=== PATIENT | male | born 1985 | race Two or more races ===

== ENCOUNTER 2023-09-27 15:30 | Inpatient (IN) | payer OTHER ==
[2023-09-27 15:54] VITALS: BMI 33.5
[2023-09-27] MEDS ORDERED: MAGNESIUM HYDROX 2400MG/30ML ORAL SUSPENSION 30 ML CUP PO PRN (16:16)
[2023-09-27] MEDS ORDERED: P-EPHED 60MG/TRIPROLIDI 2.5MG TABLET PO PRN (16:16)
[2023-09-27] MEDS ORDERED: DICYCLOMINE HCL 10 MG CAPSULE PO PRN (16:16)
[2023-09-27] MEDS ORDERED: NALOXONE (NARCAN) HCL 4 MG/0.1 ML SPRAY NS PRN (16:16)
[2023-09-27] MEDS ORDERED: NICOTINE POLACRILEX 2 MG LOZENGE BC PRN (16:16)
[2023-09-27] MEDS ORDERED: NALOXONE HCL 0.4 MG/ML VIAL IM PRN (16:16)
[2023-09-27] MEDS ORDERED: BISMUTH SUBSALICYLATE 524 MG/30 ML PO PRN (16:16)
[2023-09-27] MEDS ORDERED: LOPERAMIDE HCL 2 MG CAPSULE PO PRN (16:16)
[2023-09-27] MEDS ORDERED: POLYETHYLENE GLYCOL (HEALTHYLAX) 3350 17 GM PACKET PO PRN (16:16)
[2023-09-27] MEDS ORDERED: BENZOCAINE/MENTHOL (CHLORASEPTIC ) LOZENGE MM PRN (16:16)
[2023-09-27] MEDS ORDERED: IBUPROFEN 600 MG TABLET (FP) PO PRN (16:16)
[2023-09-27] MEDS ORDERED: guaiFENesin 600 MG TABLET.ER (FP) PO PRN (16:16)
[2023-09-27] MEDS ORDERED: BENZONATATE 200 MG CAPSULE PO PRN (16:16)
[2023-09-27] MEDS: methaDONE HCL 10 MG TABLET (FOR DETOX USE ONLY) PO ONE (17:40)
[2023-09-27] MEDS: diazePAM 5 MG TABLET PO SCH (17:41)
[2023-09-27] MEDS: NICOTINE POLACRILEX 2 MG GUM BUC PRN (19:55)
[2023-09-27] MEDS: ACETAMINOPHEN 325 MG TABLET (FP) PO PRN (21:35)
[2023-09-27] MEDS: MELATONIN 5 MG TABLETS PO SCH (22:26)
[2023-09-27] MEDS: THIAMINE 100 MG TABLET PO SCH (22:27)
[2023-09-27] MEDS: hydrOXYzine PAMOATE 25 MG CAPSULE (FP) PO PRN (22:27)
[2023-09-28] MEDS: diazePAM 5 MG TABLET PO ONE (06:09)
[2023-09-28] MEDS ORDERED: ALBUTEROL SO4 HFA INHALER IH PRN (08:35)
[2023-09-28] MEDS: BICTEGRAV/EMTRICIT/TENOFOV (BIKTARVY) 50-200-25 MG TABLET PO SCH (10:43)
[2023-09-28] MEDS: PRENATAL VITAMINS W/ FOLIC ACID TABLET (FP) PO SCH (10:43)
[2023-09-28] MEDS: methaDONE HCL 10 MG TABLET PO ONE (10:44)
[2023-09-28] MEDS: diazePAM 5 MG TABLET PO PRN ×2 (10:44→16:58)
[2023-09-28 11:59] LABS: HEMOGLOBIN 13.6 GM/dL (11.7-16.9); MCH 26.7 pg (25.7-33.7); MCHC 31.7 g/dl (32.0-35.9); MEAN CELL VOLUME 84.3 fl (80-96); MEAN PLT VOLUME 8.7 fl (7.5-11.1); PLATELET COUNT 263 10^3/uL (134-434); RDW 14.6 % (11.9-15.9); WHITE BLOOD COUNT 3.9 K/mm3 (4.0-10.0)
[2023-09-28 12:11] LABS: POTASSIUM 3.9 mmol/L (3.5-5.1)
[2023-09-28 12:15] LABS: BLOOD UREA NITROGEN 22.9 mg/dL (7-18)
[2023-09-28 12:17] LABS: CREATININE 1.2 mg/dL (0.55-1.3)
[2023-09-28 12:19] LABS: BILIRUBIN,TOTAL 0.3 mg/dL (0.2-1)
[2023-09-28] MEDS: NICOTINE 14 MG/24 HOURS TOPICAL PATCH TD PRN (13:29)
[2023-09-28] MEDS: MAG HYDROX/AL HYDROX/SIMETH 30 ML UNIT-DOSE CUP PO PRN (13:36)
[2023-09-28] MEDS: cloNIDine HCL 0.1 MG TABLET PO PRN (22:41)
[2023-09-28] MEDS: ATORVASTATIN CA 10 MG TABLET (FP) PO SCH (22:42)
[2023-09-28] MEDS: SUVOREXANT 10 MG TABLET PO PRN (22:42)
[2023-09-28] MEDS: METHOCARBAMOL 500 MG TABLET PO PRN (22:43)
[2023-09-29] MEDS: IBUPROFEN 400 MG TABLET (FP) PO PRN (03:50)
[2023-09-29] MEDS: metFORMIN HCL 500 MG TABLET (FP) PO SCH (06:34)
[2023-09-29] MEDS: methaDONE HCL 10 MG TABLET PO ONE (10:07)
[2023-09-29] MEDS: ONDANSETRON *ODT* 4 MG TABLET SL PRN (17:36)
[2023-09-30] MEDS ORDERED: methaDONE HCL 10 MG TABLET PO ONE (10:00)
[2023-10-01] MEDS: methaDONE HCL 10 MG TABLET PO ONE (10:09)
[2023-10-01 13:10] VITALS: BP 147/95; PULSE 61; RESP 18; TEMP 98.6
== END 2023-10-01 12:15 | disposition other institution (70) | DRG 773 ==
LOC: YASAS 15:30 → Y6N 17:02
PROVIDERS: ADMIT Allergy & Immunology; ATTEND Surgery
PROC: HZ2ZZZZ Detoxification Services for Substance Abuse Treatment (ICD-10-PCS; principal; 2023-09-27)
DX: F11.23 Opioid dependence with withdrawal (principal); F14.20 Cocaine dependence, uncomplicated; F15.20 Other stimulant dependence, uncomplicated; F17.210 Nicotine dependence, cigarettes, uncomplicated; F33.1 Major depressive disorder, recurrent, moderate; F19.282 Other psychoactive substance dependence with psychoactive substance-induced sleep disorder; Z21 Asymptomatic human immunodeficiency virus [HIV] infection status; E78.5 Hyperlipidemia, unspecified; E11.9 Type 2 diabetes mellitus without complications; Z79.84 Long term (current) use of oral hypoglycemic drugs; J45.20 Mild intermittent asthma, uncomplicated; Z79.899 Other long term (current) drug therapy; Z86.19 Personal history of other infectious and parasitic diseases
CPT/HCPCS: 36415; 80053; 80305; 80307; 82962; 85027; 86593; 86780; 87811; 93005; 93010; Q0162

== ENCOUNTER 2023-10-01 13:09 | Inpatient (IN) | payer OTHER ==
[2023-10-01] MEDS ORDERED: BENZONATATE 200 MG CAPSULE PO PRN (14:34)
[2023-10-01] MEDS ORDERED: LOPERAMIDE HCL 2 MG CAPSULE PO PRN (14:34)
[2023-10-01] MEDS ORDERED: NALOXONE (NARCAN) HCL 4 MG/0.1 ML SPRAY NS PRN (14:34)
[2023-10-01] MEDS ORDERED: BENZOCAINE/MENTHOL (CHLORASEPTIC ) LOZENGE MM PRN (14:34)
[2023-10-01] MEDS ORDERED: IBUPROFEN 400 MG TABLET (FP) PO PRN (14:34)
[2023-10-01] MEDS ORDERED: NALOXONE HCL 0.4 MG/ML VIAL IVPUSH PRN (14:34)
[2023-10-01] MEDS ORDERED: guaiFENesin 600 MG TABLET.ER (FP) PO PRN (14:34)
[2023-10-01] MEDS: hydrOXYzine PAMOATE 25 MG CAPSULE (FP) PO PRN (16:50)
[2023-10-01] MEDS: MAG HYDROX/AL HYDROX/SIMETH 30 ML UNIT-DOSE CUP PO PRN (17:54)
[2023-10-01] MEDS: ATORVASTATIN CA 10 MG TABLET (FP) PO SCH (21:18)
[2023-10-01] MEDS: THIAMINE 100 MG TABLET PO SCH (21:18)
[2023-10-01] MEDS: MELATONIN 5 MG TABLETS PO SCH (21:18)
[2023-10-01] MEDS: METHOCARBAMOL 500 MG TABLET PO PRN (21:19)
[2023-10-01] MEDS: IBUPROFEN 600 MG TABLET (FP) PO PRN (23:05)
[2023-10-02] MEDS: BICTEGRAV/EMTRICIT/TENOFOV (BIKTARVY) 50-200-25 MG TABLET PO SCH ×2 (05:26→17:28)
[2023-10-02] MEDS: NICOTINE 14 MG/24 HOURS TOPICAL PATCH TD SCH (05:27)
[2023-10-02] MEDS: metFORMIN HCL 500 MG TABLET (FP) PO SCH (06:04)
[2023-10-02] MEDS ORDERED: INSULIN ASPART SLIDING SCALE (NOVOLOG) 1 VIAL SQ ONE (06:31)
[2023-10-02] MEDS: methaDONE HCL 10 MG TABLET PO SCH (06:49)
[2023-10-02] MEDS ORDERED: NICOTINE 14 MG/24 HOURS TOPICAL PATCH TD SCH (10:00)
[2023-10-02] MEDS: PRENATAL VITAMINS W/ FOLIC ACID TABLET (FP) PO SCH (10:39)
[2023-10-02] MEDS: LISINOPRIL 10 MG TABLET PO SCH (14:02)
[2023-10-02] MEDS: ATORVASTATIN CA 10 MG TABLET (FP) PO SCH (21:16)
[2023-10-03] MEDS: BICTEGRAV/EMTRICIT/TENOFOV (BIKTARVY) 50-200-25 MG TABLET PO SCH (07:08)
[2023-10-03] MEDS: POLYETHYLENE GLYCOL (HEALTHYLAX) 3350 17 GM PACKET PO PRN (11:55)
[2023-10-03 12:03] LABS: POTASSIUM 4.7 mmol/L (3.5-5.1)
[2023-10-03 12:11] LABS: CALCIUM 9.5 mg/dL (8.5-10.1)
[2023-10-03 12:12] LABS: BLOOD UREA NITROGEN 18.3 mg/dL (7-18)
[2023-10-03 12:15] LABS: CREATININE 1.1 mg/dL (0.55-1.3)
[2023-10-03 12:28] LABS: BASO % 0.3 % (0-2.0); EOS % 1.5 % (0-4.5); HEMATOCRIT 42.3 % (35.4-49); HEMOGLOBIN 13.6 GM/dL (11.7-16.9); MCH 27.1 pg (25.7-33.7); MCHC 32.1 g/dl (32.0-35.9); MEAN CELL VOLUME 84.5 fl (80-96); MEAN PLT VOLUME 9.2 fl (7.5-11.1); MONO % 14.2 % (3.8-10.2); PLATELET COUNT 257 10^3/uL (134-434); RDW 14.5 % (11.9-15.9); WHITE BLOOD COUNT 6.1 K/mm3 (4.0-10.0)
[2023-10-03] MEDS: SUVOREXANT 10 MG TABLET PO PRN (21:09)
[2023-10-04] MEDS: ALBUTEROL SO4 HFA INHALER IH PRN (00:34)
[2023-10-04] MEDS ORDERED: BISMUTH SUBSALICYLATE 262 MG/15 ML BTL PO PRN (14:20)
[2023-10-04] MEDS: GABAPENTIN 100 MG CAPSULE PO SCH (14:39)
[2023-10-04] MEDS: amLODIPine BESYLATE 2.5 MG TABLET (FP) PO SCH (14:50)
[2023-10-04] MEDS: ONDANSETRON *ODT* 4 MG TABLET SL PRN (14:51)
[2023-10-04] MEDS: CLOTRIMAZOLE 10 MG TROCHE PO SCH (18:47)
[2023-10-04] MEDS: BACLOFEN 10 MG TABLET (FP) PO SCH (21:06)
[2023-10-05] MEDS: BICTEGRAV/EMTRICIT/TENOFOV (BIKTARVY) 50-200-25 MG TABLET PO SCH (06:10)
[2023-10-05] MEDS: methaDONE HCL 40 MG DISPERSABLE TABLET PO SCH (06:11)
[2023-10-05] MEDS: DICYCLOMINE HCL 10 MG CAPSULE PO PRN (06:40)
[2023-10-05] MEDS ORDERED: methaDONE HCL 10 MG TABLET PO SCH (10:00)
[2023-10-05] MEDS: MAGNESIUM HYDROX 2400MG/30ML ORAL SUSPENSION 30 ML CUP PO PRN (17:46)
[2023-10-06] MEDS: methaDONE HCL 10 MG TABLET PO SCH (06:06)
[2023-10-06] MEDS: SUVOREXANT 10 MG TABLET PO PRN (21:16)
[2023-10-07] MEDS: ARIPiprazole 5 MG TABLET PO SCH (16:20)
[2023-10-07] MEDS: SUVOREXANT 15 MG TABLET PO PRN (21:05)
[2023-10-09] MEDS: BISACODYL 5 MG TABLET.DR (FP) PO PRN (14:02)
[2023-10-09] MEDS: DOCUSATE SODIUM 100 MG CAPSULE (FP) PO PRN (21:08)
[2023-10-10] MEDS ORDERED: methaDONE HCL 10 MG TABLET PO SCH (06:00)
[2023-10-10] MEDS: ACETAMINOPHEN 325 MG TABLET (FP) PO PRN (23:11)
[2023-10-12] MEDS: SODIUM PHOSPHATE/NA BIPHOS 133 ML ENEMA RC ONE (14:12)
[2023-10-12] MEDS ORDERED: SODIUM PHOSPHATE/NA BIPHOS 133 ML ENEMA RC PRN (15:21)
[2023-10-15] MEDS: SUVOREXANT 5 MG TABLET PO PRN (21:10)
[2023-10-16 06:47] VITALS: RESP 16; TEMP 97.7
[2023-10-16 09:51] VITALS: BP 123/78; PULSE 65
== END 2023-10-16 09:10 | disposition home or self-care (01) | DRG 772 ==
LOC: YASAS 13:09 → Y3NR 13:10 → Y5N 10-03 13:20 → Y3E 10-04 06:36
PROVIDERS: ADMIT Allergy & Immunology; ATTEND Psychiatry & Neurology Pain Medicine
PROC: HZ42ZZZ Group Counseling for Substance Abuse Treatment, Cognitive-Behavioral (ICD-10-PCS; principal; 2023-10-01)
DX: F11.20 Opioid dependence, uncomplicated (principal); F10.20 Alcohol dependence, uncomplicated; F14.20 Cocaine dependence, uncomplicated; F17.210 Nicotine dependence, cigarettes, uncomplicated; F19.282 Other psychoactive substance dependence with psychoactive substance-induced sleep disorder; F19.24 Other psychoactive substance dependence with psychoactive substance-induced mood disorder; F64.0 Transsexualism; F41.9 Anxiety disorder, unspecified; F32.A Depression, unspecified; I10 Essential (primary) hypertension; J45.20 Mild intermittent asthma, uncomplicated; E78.5 Hyperlipidemia, unspecified; E11.40 Type 2 diabetes mellitus with diabetic neuropathy, unspecified; Z79.84 Long term (current) use of oral hypoglycemic drugs; B37.0 Candidal stomatitis; K59.00 Constipation, unspecified; Z89.422 Acquired absence of other left toe(s); Z89.421 Acquired absence of other right toe(s)
CPT/HCPCS: 36415; 80048; 82962; 83036; 85025; 87811; J0475; Q0162